=== PATIENT | female | born 1980 | race Caucasian/White ===

== ENCOUNTER 2019-06-25 20:23 | Emergency (ER) | payer BC ==
[2019-06-25] MEDS ORDERED: Lidocaine 1% (PF) 30 ML VIAL ONE (20:45)
[2019-06-25] MEDS ORDERED: Adacel (T-DAP) 0.5 ML SYRINGE ONE (21:11)
[2019-06-25] MEDS ORDERED: Bacitracin 1 PK ONE (21:19)
== END 2019-06-25 21:37 | disposition home or self-care (01) ==
LOC: ERS 20:23
DX: S61.213A Laceration without foreign body of left middle finger without damage to nail, initial encounter (principal); W26.0XXA Contact with knife, initial encounter
CPT/HCPCS: 12001; 90471; 90715; J2001

== ENCOUNTER 2019-12-30 07:35 | Outpatient (CLI) | payer BC ==
--- NOTE | 2019-12-30 09:34 | RAD ---
CERVICAL SPINE 3 VIEWS: Date: 12/30/2019 HISTORY: Pain that goes down across left shoulder. FINDINGS: Generalized disc osteophytosis and facet arthrosis. Metal plate and screws stabilize the left mandibl e. C1 and C2 are partially obscured on the AP open-mouth view. IMPRESSION: 1. Cervical spondylosis. 2. Metal plate and screws stabilize the left mandible. POS: RRE
== END 2019-12-30 07:36 | disposition home or self-care (01) ==
LOC: TBSIIMAG 07:35
PROVIDERS: ATTEND Neurological Surgery
DX: M47.22 Other spondylosis with radiculopathy, cervical region (principal)
CPT/HCPCS: 72040

== ENCOUNTER 2020-02-05 12:27 | Outpatient (CLI) | payer BC ==
--- NOTE | 2020-02-05 14:34 | RAD ---
CERVICAL SPINE: 02/05/20 Two views. COMPARISON: 12/30/19 INDICATIONS: Cervical radiculopathy. Postop follow-up. Anterior fusion procedure since prior exam. Anterior plate and screws now transfix C4, C5 and C6 with interbody implants at these levels. Vertebral bodies maintain height and alignment. Disc spaces are otherwise maintained. IMPRESSION: Postoperative changes as described. POS: [facility]
== END 2020-02-05 12:28 | disposition home or self-care (01) ==
LOC: TBSIIMAG 12:27
PROVIDERS: ATTEND Neurological Surgery
DX: M54.12 Radiculopathy, cervical region (principal); Z98.1 Arthrodesis status
CPT/HCPCS: 72040

== ENCOUNTER 2020-12-03 18:09 | Emergency (ER) | payer BC | END 2020-12-03 23:20 | disposition left against medical advice (07) | LOC: ERS 18:09 | DX: Z53.21 Procedure and treatment not carried out due to patient leaving prior to being seen by health care provider (principal) ==